=== PATIENT | male | born 2000 | race Caucasian/White ===

== ENCOUNTER 2020-02-14 21:43 | Emergency (ER) | payer SELFPAY ==
[~2020-02-14] VITALS: Ht 172.7 cm; Wt 59.0 kg
--- NOTE | 2020-02-15 16:36 | EKG ---
[facility] [address] [facility] [place], [place] [address] Signed Sinus tachycardia Possible Left atrial enlargement Borderline ECG No previous ECGs available Confirmed by MEGAN DAWSON DO ([id number]) on 02/15/2020 4:36:35 PM Electronically Signed By: MEGAN DAWSON DO 02/15/20 1636 PATIENT NAME: REBECCA TORRES Electrocardiogram DATE OF : [birth year] PHYSICIAN: MEGAN DAWSON DO REPORT #: [id number] REPORT IS CONFIDENTIAL AND NOT TO BE RELEASED WITHOUT AUTHORIZATION
== END 2020-02-14 23:34 | disposition home or self-care (01) ==
LOC: ED 21:43
DX: R07.89 Other chest pain (principal); F17.200 Nicotine dependence, unspecified, uncomplicated; Z88.0 Allergy status to penicillin
CPT/HCPCS: 71046; 80053; 84484; 85025; 85379; 93005; 93010; 99285-25

== ENCOUNTER 2024-10-14 11:05 | Emergency (ER) | payer OTHER ==
[~2024-10-14] VITALS: Ht 172.7 cm; Wt 75.6 kg
[~2024-10-14 11:05] MED LIST: LIDODERM1 EACH TOP; NAPROSYN500 MG PO
[2024-10-14] MEDS ORDERED: IBUPROFEN 600 MG TAB PO ONE (13:15)
[2024-10-14] MEDS ORDERED: CYCLOBENZAPRINE HCL 10 MG TAB PO ONE (13:15)
[2024-10-14] MEDS ORDERED: LIDOCAINE HCL 4% 1 EACH PATCH TD ONE (13:15)
[2024-10-14] MEDS ORDERED: OXYCODONE/APAP 5/325 TAB PO ONE (13:15)
[2024-10-14] MEDS ORDERED: CYCLOBENZAPRINE10 MG PO (14:49)
[2024-10-14 15:08] VITALS: BP 124/65
[2024-10-14] MEDS ORDERED: LIDOCAINE PATCH REMOVAL 1 EA TD SCH (21:00)
== END 2024-10-14 15:10 | disposition home or self-care (01) ==
LOC: ED 11:05
DX: R07.81 Pleurodynia (principal); F17.200 Nicotine dependence, unspecified, uncomplicated; Z88.0 Allergy status to penicillin
CPT/HCPCS: 71045; 71101; 99283; A9270